=== PATIENT | female | born 1985 | race Two or more races ===

== ENCOUNTER 2016-11-24 08:00 | Inpatient (IN) | payer MEDICARE ==
[~2016-11-24] VITALS: Ht 152.4 cm; Wt 82.7 kg
--- NOTE | ~2016-11-24 | DS ---
PATIENT'S NAME: MISTY BALDERAS [facility] AGE: 31 Y [address] ROOM: [address] [address] LOCATION: [facility] ADMIT DATE: 11/25/2016 Discharge Summary DISCHARGE DATE: 11/28/2016 FAMILY PHYSICIAN: JEREMIAS CARBAJAL ATTENDING PHYSICIAN: Tracey Magaña REASON FOR ADMISSION: The patient was a scheduled admission for an elective procedure. The patient was scheduled to come in for laminectomy and posterior instrumented fusion. TREATMENT RENDERED: On the same day of admission, the patient was taken to the operating room. She underwent L5-S1 bilateral laminectomy with posterolateral fusion and pedicle screw instrumentation. COURSE IN THE HOSPITAL: The patient's procedure was uncomplicated. Her postoperative course was uneventful. She had some pain initially, but this gradually improved. By the second day of admission, the patient was up ambulating on the floor with her brace. Her incision was intact, and she was taking oral pain medications for pain control. The patient did well, and by the 28 of November, she was ready for dismissal. She was discharged that day, and has since been seen in the followup clinic and noted to be doing well. FINAL DIAGNOSIS: Spondylolisthesis at L5-S1. Treatment rendered, spinal fusion at L5-S1. MD JULIETTE ZHU/bere /[id number] d: 12/20/16 0656 t: 12/30/16 0901, DISCHARGE SUMMARY
--- NOTE | ~2016-11-24 | OR ---
PATIENT'S NAME: MISTY BALDERAS [facility] AGE: 31 Y [address] ROOM: [address] [address] LOCATION: [facility] ADMIT DATE: 11/25/2016 OR/Procedure Report DISCHARGE DATE: FAMILY PHYSICIAN: JEREMIAS CARBAJAL ATTENDING PHYSICIAN: Tracey Magaña SURGEON: Tracey Magaña MD CHEESE MAKER: 1. Nataliia Morales. 2. Matt Novoa CST. DATE OF PROCEDURE: 11/25/2016 PREOPERATIVE DIAGNOSIS: L5-S1 spondylolisthesis. POSTOPERATIVE DIAGNOSIS: L5-S1 spondylolisthesis. PROCEDURES PERFORMED: 1. Bilateral laminectomy Abraham procedure with decompression of neural elements and foraminotomy at L5 and parts of S1. 2. Posterolateral fusion with morselized allograft and morselized autograft bone. 3. Posterior instrumentation with pedicle screws at L5 and S1. 4. Use of intraoperative frameless stereotactic navigation for pedicle screw placement. 5. Use of O-arm for intraoperative localization and visualization. ANESTHESIA: General. ANESTHESIA PROVIDER: Eliceo Jeff MD. HISTORY: This patient is a 31-year-old female who presented with back pain. The patient had had prior lumbar microdiskectomy, but had a return of pain. Imaging studies showed progressive spondylolisthesis at L5-S1. Surgery was recommended. The procedure, benefits and risks were discussed with the patient and with her consent, she was brought to the operating room for surgery. PROCEDURE IN DETAIL: In the operating room, the patient was placed in a supine position. Anesthesia was induced, Carey catheter was inserted and support lines were placed. The patient was then rolled to a prone position on a Franky table taking care to protect all pressure points. The incision was marked out the lower lumbar level. The whole area was prepped and draped in a sterile fashion. Local anesthesia was infiltrated. The #10 blade was used to open the incision and to deepen it to the fascial layer. The self-retaining retractors were placed. The fascia was opened and the tips of the spinous processes were identified. The paraspinous muscles were dissected off the L5- S1 and L4 vertebrae. Dissection continued laterally until the L5 transverse PATIENT'S NAME: MISTY BALDERAS [facility] AGE: 31 Y [address] ROOM: [id number] [place], [place] [address] LOCATION: [facility] ADMIT DATE: 11/25/2016 OR/Procedure Report DISCHARGE DATE: FAMILY PHYSICIAN: JEREMIAS CARBAJAL ATTENDING PHYSICIAN: Tracey Magaña process and the sacral ala were identified. We could see that the L5 spinous process and lamina were very lose. There was evidence of surgery on the right side at L5-S1. Working very carefully, laminectomy was carried out of the L5 level. There was extremely significant fibrosis around the L5 neural foramina on both sides. The nerve roots were clearly compressed. Decompression was carried out until both L5 and both S1 nerve roots could be seen going out into the foramina. I contemplated doing an interbody fusion, however, the patient's disk space was exceedingly collapsed. In addition, she had a very significant lordosis making it a very steep angle for placing interbody material. I therefore felt that, we could do the posterolateral fusion for her and the nerve roots had already been decompressed without any compression from the disk. Pedicle screws were inserted bilaterally into L5 and S1. The O-arm was used to obtain an image of the lumbosacral region. The reference frame had already been attached to the spinous process of L4 and the registration was carried out using the [employer] System. The stealth and O-arm pictures were merged together to generate a 3-dimensional picture of the spine on the screen. This 3-dimensional picture was used for pedicle screw placement. The entry point for each screw was identified. The fixed wing pilot hole was drilled. The pedicle finder was used to deepen the hole watching the direction and depth on the screen. The ball-tipped probe was then used to feel around the inside of the holes to make sure that there was no breach. Appropriate sized screws were then inserted again under image guidance. A final O-arm x-ray was obtained to verify the position of the screws. Rods were then placed inside the screw heads and setscrews were used to tighten the rods. Irrigation was used to wash out the debris. The transverse processes of L5 on both sides as well as the sacral ala were decorticated. The patient's lamina bone was mixed with demineralized bone matrix. The combination was ground up with the bone mill. The bone graft was placed on top of the decorticated transverse process and sacral ala on both sides for the posterolateral fusion. The incision was then closed with appropriate suture materials. Sterile dressing was applied. The patient was rolled back to a supine position. Her anesthesia was reversed. She was extubated and taken to the recovery room to complete her recovery. I was present at and performed every aspect of this procedure, assisted at some stages by operating room nurses. There were no apparent intraoperative PATIENT'S NAME: MISTY BALDERAS [facility] AGE: 31 Y [address] ROOM: [id number] [place], [place] [address] LOCATION: [facility] ADMIT DATE: 11/25/2016 OR/Procedure Report DISCHARGE DATE: FAMILY PHYSICIAN: JEREMIAS CARBAJAL ATTENDING PHYSICIAN: Tracey Magaña complications. Swabs, needles, and instruments were all accounted for at the end of the case. Estimated blood loss was less than 500 mL. There was no reason for blood transfusion. I expect the patient to benefit from this procedure. MD JULIETTE ZHU/viancal /[id number] d: 11/26/16 0851 t: 11/30/16 1552, OPERATIVE SUMMARY
--- NOTE | ~2016-11-24 | HP ---
PATIENT'S NAME: ESTELITA BALDERAS [facility] AGE: 31 Y [address] ROOM: [place] [id number] LOCATION: [facility] ADMIT DATE: 11/25/2016 History & Physical DISCHARGE DATE: 11/28/2016 FAMILY PHYSICIAN: JEREMIAS CARBAJAL ATTENDING PHYSICIAN: Tracey Magaña DATE OF SERVICE: 12/19/2016 PATIENT IDENTIFICATION: Estelita Balderas is a 31-year-old female. PRESENTING COMPLAINT: Back pain. HISTORY OF PRESENT ILLNESS: The patient complains of neck and lower back pain. Neck pain has been present for 3 months and back pain for about 5 or 6 years. She rates the pain as mild, sometimes severe, and it shoots down both legs and feet. The neck has also been hurting. The leg pain is worse on the right side. She has done physical therapy without much benefit. Back pain is helped by doing nothing and worsened by walking, bending, or twisting. The patient had prior L5-S1 microdiskectomy in 2012, and the surgery helped initially, but the pain came back and started shooting down the leg. Sometimes, the pain is so bad, she can not do anything for up to a week. The patient had lumbar spine MRI and was referred to me for evaluation and treatment. PAST MEDICAL HISTORY: No significant previous illnesses. ALLERGIES: NONE KNOWN. CURRENT MEDICATIONS: Aleve. REVIEW OF SYSTEMS: A 10-point review of systems was carried out. The only abnormal findings are as described in the history of present illness. PHYSICAL EXAMINATION: GENERAL: The patient is a healthy-looking female, who was not in any distress at this time she was seen. NEUROLOGIC: No deficits seen except increased deep tendon reflexes in all extremities. PSYCHIATRIC: No abnormal findings. PATIENT'S NAME: ESTELITA BALDERAS [facility] AGE: 31 Y [address] ROOM: [id number] [place] [id number] LOCATION: [facility] ADMIT DATE: 11/25/2016 History & Physical DISCHARGE DATE: 11/28/2016 FAMILY PHYSICIAN: JEREMIAS CARBAJAL ATTENDING PHYSICIAN: Tracey Magaña MUSCULOSKELETAL: The patient had normal gait and normal strength. CARDIOVASCULAR: Heart sounds were present. RESPIRATORY SYSTEM: Respiration was unlabored. EYES, EARS, NOSE, AND THROAT: No evidence of trauma. SKIN: No skin rashes or skin masses. REVIEW OF IMAGING STUDIES: The patient has had an MRI of the lumbar spine done. The MRI shows degeneration of the L5-S1 disk with spondylolisthesis. The spondylolisthesis has progressed from previous MRI performed in 2015. IMPRESSION: A 31-year-old female with progressive lower back and bilateral leg pain. Imaging studies show progression of spondylolisthesis at L5-S1. The patient has not responded to lumbar microdiskectomy. MEDICAL DECISION MAKING: I reviewed the MRI with the patient and her and described the findings to them. I have recommended surgery. The surgery will be spinal fusion at L5- S1. I have gone over the procedure with the patient and . I have explained the benefits, risks, and alternatives to them. The patient has given consent and surgery has been scheduled. I will see her in the operating room. This history and physical is being dictated as the original dictation was deemed to have at the time the patient came for her surgery on November 25, 2016. MD JULIETTE ZHU/bere /[id number] D: 138 T: 903 HISTORY & PHYSICAL
[2016-11-24] MEDS ORDERED: RISPERDAL1 MG PO (08:16)
[2016-11-24] MEDS ORDERED: SINGULAIR10 MG PO (08:16)
[2016-11-24] MEDS ORDERED: JANUMET 50-5001 EACH PO (08:17)
[2016-11-24] MEDS ORDERED: NEURONTIN100 MG PO (08:18)
[2016-11-25 10:11] LABS: BASOPHIL # 0.1 K/uL (0.0-0.2); BASOPHIL % 0.6 %; EOSINOPHIL # 0.2 K/uL (0.0-0.5); EOSINOPHIL % 1.7 %; HEMATOCRIT 42.3 % (33.0-46.0); HEMOGLOBIN 13.8 g/dL (11.0-15.0); IMMATURE GRANULOCYTE % 0.3 %; LYMPHOCYTE # 2.3 K/uL (0.8-4.0); LYMPHOCYTE % 25.3 %; MCH 28.9 pg (27.0-34.0); MCHC 32.6 gm/dL (32.0-36.5); MCV 88.7 fl (83.0-98.0); MONOCYTE # 0.7 K/uL (0.0-1.0); MONOCYTE % 7.9 %; MPV 9.5 fl (9.4-12.4); NEUTROPHIL # (ANC) 5.7 K/uL (1.8-7.8); NEUTROPHIL % 64.2 %; NRBC % 0 /100WBC (0-0.00); PLATELET COUNT 260 K/uL (150-450); RBC 4.77 M/uL (3.50-5.50); RDW-CV 13.2 % (11.9-14.6); WBC 8.9 K/uL (4.0-11.0)
[2016-11-25 10:29] LABS: PROTIME 10.6 SECONDS (9.6-11.1); PTT 26 SECONDS (25-32)
[2016-11-25 10:36] LABS: ALK PHOS 67 IU/L (33-138); ALT 19 IU/L (12-78); ANION GAP 12.9 (10.0-19.0); AST 14 IU/L (10-40); BLOOD UREA NITROGEN 11 mg/dL (6-24); CALCIUM 8.5 mg/dL (8.5-10.5); CHLORIDE 111 mMol/L (96-110); CO2 24 mMol/L (22-32); CREATININE 0.9 mg/dL (0.5-1.1); ESTIMATED GFR (MDRD EQUATION) > 60; POTASSIUM 3.9 mMol/L (3.7-5.1); SODIUM 144 mMol/L (135-145); TOTAL BILIRUBIN 0.6 mg/dL (0.0-1.5); TOTAL PROTEIN 7.7 g/dL (6.0-8.4)
[2016-11-28] MEDS ORDERED: NORCO 5-325 TA1 EACH PO (10:24)
== END 2016-11-28 12:28 | disposition disaster alternative care site (69) | DRG 460 ==
LOC: G3N 11-25 09:22 → GNTU 11-25 18:27
PROVIDERS: ADMIT Neurological Surgery
PROC: 0SG3071 Fusion of Lumbosacral Joint with Autologous Tissue Substitute, Posterior Approach, Posterior Column, Open Approach (ICD-10-PCS; principal; 2016-11-25)
DX: M43.17 Spondylolisthesis, lumbosacral region (principal); Z87.891 Personal history of nicotine dependence; R73.03 Prediabetes
CPT/HCPCS: C1713; J0690; J1100; J1885; J2001; J2250; J2270; J2405; J3010; J3360; J7030; J7120